=== PATIENT | female | born 1980 | race Caucasian/White ===

== ENCOUNTER 2018-08-23 09:58 | Emergency (ER) | payer OTHER, MEDICAID ==
[2018-08-23] MEDS: IBUPROFEN 600 MG TAB PO (11:05)
[2018-08-23] MEDS: HYDROCODONE/APAP (5/325) TAB PO (11:05)
== END 2018-08-23 12:02 | disposition home or self-care (01) ==
LOC: FTE 09:58
DX: S99.921A Unspecified injury of right foot, initial encounter (principal); W20.8XXA Other cause of strike by thrown, projected or falling object, initial encounter; Y92.89 Other specified places as the place of occurrence of the external cause
CPT/HCPCS: 73630; 99283-25